=== PATIENT | male | born 1980 | race Two or more races ===

== ENCOUNTER 2024-06-16 13:21 | Outpatient (OUT) | payer OTHER, SELFPAY ==
--- NOTE | 2024-06-16 13:41 | CA_ITS ---
Patient Name: ANURAG CHAIDEZ MR#: [id number] : 1980 Exam Date: 06/16/2024 Ordering Doctor: DR. TORI BARAJAS M.D. ECHOCARDIOGRAM REPORT PROCEDURE: CA ECHO DOPPLER COMPLETE INDICATIONS: Pre op, Abnormal EKG COMPARISON: None. DESCRIPTION: COMPLETE ECHOCARDIOGRAM Real-time transthoracic echocardiography with 2D, M-mode, spectral and color flow Doppler performed. QUALITY: Technical quality was good. LEFT VENTRICLE: Normal chamber size. Thickened septal wall. LV EF: Global left ventricular systolic function is normal. Calculated left ventricular ejection fraction is 56%. No segmental wall motion abnormalities. DIASTOLIC: Normal diastolic function. ATRIAL SEPTUM: Inadequately seen. LEFT ATRIUM: Normal chamber size. RIGHT ATRIUM: Normal chamber size. RIGHT VENTRICLE: Normal chamber size. Normal right ventricular systolic function. TRICUSPID VALVE: Normal mobility and thickness. No stenosis with trivial regurgitation. No evidence of pulmonary hypertension. RVSP 26mmHg MITRAL VALVE: Normal mobility and thickness. No evidence of mitral valve stenosis. There is no mitral annular calcification. Trivial mitral regurgitation. AORTIC VALVE: Normal trileaflet appearance. No visible sclerosis. Normal leaflet mobility. No evidence of aortic valve stenosis. AORTIC ROOT: Normal diameter and appearance. PULMONIC VALVE: Normal thickness and mobility. No stenosis. Trivial regurgitation. PERICARDIUM: No evidence of pericardial effusion. IVC: Collapses with inspirations. Normal size. CONCLUSION: 1. Global left ventricular systolic function is normal; visually estimated ejection fraction is 55 to 60% 2. Normal right ventricular size and systolic function 3. Normal diastolic function 4. No significant valvular abnormalities Adult Echocardiography Procedure Report Left Ventricle LVEDD (3.7 - 5.6 cm): 4.39 cm LVESD (2.2 - 4.0 cm): 3.16 cm LVIVS thickness (0.6 - 1.2 cm): 1.26 cm LVPW thickness (0.5 - 1.0 cm): 1.01 cm e': 0.11 m/s E - e': 6.57 LVOT Max Gradient: 2.83 mm[Hg] LVOT Area (cm2): 0.84 m/s Peak Velocity (LVOT): 0.84 m/s Mean Velocity (LVOT): 0.53 m/s LVOT Diameter 2.19 cm Left Ventricular Ejection Fraction: 55.83 % Left Atrium LA Volume Index (2D A2C): 20.36 ml/m2 Left Atrium Systolic Dimension: 4.19 cm Mitral Valve MV E to A Ratio: 1.02 Mitral Valve A-Wave Peak Velocity: 0.70 m/s Mitral Valve E-Wave Peak Velocity: 0.71 m/s Right Ventricle RV Internal Diastolic Dimension: 4.15 cm Aorta AO Root Diam: 3.72 cm Ascending Ao Diam: 3.24 cm Aortic Valve AoV Area (Peak Long): 3.83 cm2, 3.83 cm2 AoV Area (VTI): 3.61 cm2, 3.61 cm2 Peak Velocity(Antegrade Flow): 0.83 m/s Peak Gradient(Antegrade Flow): 2.76 mm[Hg] Mean Velocity(Antegrade Flow): 0.58 m/s Mean Gradient(Antegrade Flow): 1.54 mm[Hg] Velocity Time Integral: 17.95 cm Tricuspid Valve Peak Velocity (Regurgitant Flow): 2.20 m/s, 1.72 m/s, 2.40 m/s Pulmonic Valve Mean Gradient: 1.76 mm[Hg], 1.60 mm[Hg] Mean Velocity: 0.63 m/s, 0.58 m/s Peak Velocity: 0.89 m/s Peak Gradient: 3.06 mm[Hg], 3.26 mm[Hg] Right Atrium Right Atrium Systolic Pressure: 67.17 ml, 67.17 ml Dictated by: Kelvin Tellez M.D. on 06/16/2024 at 16:21 Approved by: Kelvin Tellez M.D. on 06/16/2024 at 16:26
== END 2024-06-16 13:22 | disposition home or self-care (01) ==
PROVIDERS: PCP Internal Medicine; Visit Provider Internal Medicine Cardiovascular Disease
DX: R94.31 Abnormal electrocardiogram [ECG] [EKG] (principal); Z01.818 Encounter for other preprocedural examination
CPT/HCPCS: 93306